=== PATIENT | male | born 1985 | race Two or more races ===

== ENCOUNTER 2017-06-28 02:17 | Emergency (ER) | payer BC ==
[~2017-06-28] VITALS: Ht 167.6 cm; Wt 86.2 kg
[2017-06-28 02:25] VITALS: BP 159/97
[2017-06-28] MEDS ORDERED: ONDANSETRON HCL 4 MG/2 ML VIAL IV ONE ×2 (03:30→05:45)
[2017-06-28] MEDS ORDERED: HYDROmorphone HCL 2 MG/ML VL IV ONE (03:30)
[2017-06-28 04:02] LABS: Mean Corpuscular Hemoglobin 29.6 pg (28.0-32.0); Mean Corpuscular Volume 87.1 fL (80.0-100.0); Mean Platelet Volume 8.3 fL (6.9-10.8); Platelet Count (auto) 356 10^3/uL (140-450); Red Cell Distribution Width 13.2 % (11.8-14.3); White Blood Cell 22.8 10^3/uL (4.4-10.8)
[2017-06-28] MEDS ORDERED: TETANUS-DIPTH-ACEL PERTUSSIS 0.5ML SYRG IM ONE (04:15)
[2017-06-28 04:20] LABS: Albumin 4.6 g/dL (3.4-5.0); BUN/Creatinine Ratio 5.5; Calcium 9.2 mg/dL (8.5-10.1)
[2017-06-28 04:23] LABS: Bilirubin, Total 0.4 mg/dL (0.2-1.0)
[2017-06-28] MEDS ORDERED: PROMETHAZINE HCL 25 MG/ML 1ML IV ONE (06:00)
[2017-06-28 06:14] LABS: Urine Bilirubin Negative (Negative); Urine Blood 1+ /uL (Negative); Urine Ca Oxalate Crystal FEW (None Seen); Urine Color Colorless (Yellow); Urine Glucose 4+ mg/dL (Normal); Urine Ketone 1+ (Negative); Urine Mucus FEW (None Seen); Urine Nitrite Negative (Negative); Urine RBC 2 /hpf (0 - 3); Urine Squamous Epithelial Cell FEW /hpf (<5); Urine Urobilinogen Normal (Negative); Urine pH 5.5 (5.0-8.0)
[2017-06-28 07:22] LABS: Metamyelocytes % 0; Myelocytes % 0; Promyelocytes % 0; Reactive Lymphocytes 0
[2017-06-28 07:23] LABS: Anisocytosis Slight; Ovalocytes FEW; Platelet Estimate Adequate
== END 2017-06-28 06:22 | disposition home or self-care (01) ==
LOC: EDUNIT# 02:17 → EDBD 02:17 → ER 02:26
DX: S02.92XA Unspecified fracture of facial bones, initial encounter for closed fracture (principal); G92 Toxic encephalopathy; F10.120 Alcohol abuse with intoxication, uncomplicated; E11.9 Type 2 diabetes mellitus without complications; I10 Essential (primary) hypertension; Y08.89XA Assault by other specified means, initial encounter; Y93.89 Activity, other specified; Y99.8 Other external cause status; Y92.89 Other specified places as the place of occurrence of the external cause
CPT/HCPCS: 36415; 70450; 70486; 71010; 80053; 80307; 80320; 81001; 85007; 85027; 90471; 90715; 96374; 96375; 99285; J1170; J2405; J2550

== ENCOUNTER 2021-02-11 22:57 | Emergency (ER) | payer MEDICAID ==
[~2021-02-11] VITALS: Ht 167.6 cm; Wt 93.0 kg
[2021-02-12] MEDS ORDERED: SODIUM CHLORIDE 0.9% 1,000 ML IV ONE (00:15)
[2021-02-12 01:52] VITALS: BP 134/62
== END 2021-02-12 02:15 | disposition home or self-care (01) ==
LOC: ER 23:00
DX: E11.65 Type 2 diabetes mellitus with hyperglycemia (principal); I10 Essential (primary) hypertension
CPT/HCPCS: 82962; 96360; 99283; J7030

== ENCOUNTER 2025-03-07 22:52 | Emergency (ER) | payer MEDICAID ==
[~2025-03-07] VITALS: Ht 175.3 cm; Wt 77.3 kg
[2025-03-08 00:02] LABS: Basophils # (auto) 0 10 ^3/uL (0-0.2); Basophils % (auto) 0.2 % (0.0-2.0); Eosinophils # (auto) 0 10 ^3/uL (0-0.8); Eosinophils % (auto) 0.3 % (0.0-7.0); Hemoglobin 14.8 g/dL (13.5-17.5); Lymphocytes # (auto) 1.3 10 ^3/uL (0.4-5.4); Lymphocytes % (auto) 10.8 % (10.0-50.0); Mean Corpuscular Hemoglobin 28.6 pg (28.0-32.0); Mean Corpuscular Hgb Conc. 34.4 g/dL (32.0-36.0); Mean Corpuscular Volume 83.2 fL (80.0-100.0); Monocytes # (auto) 0.3 10 ^3/uL (0-1.3); Monocytes % (auto) 2.8 % (0.0-12.0); Neutrophils # (auto) 10.4 10 ^3/uL (1.6-8.6); Neutrophils % (auto) 85.9 % (37.0-80.0); Nucleated Red Blood Cells % 0.1 %; Platelet Count (auto) 356 10^3/uL (140-450); Red Blood Cells 5.16 10^6/uL (4.5-5.90); Red Cell Distribution Width 12.9 % (11.8-14.3); White Blood Cell 12.1 10^3/uL (4.4-10.8)
[2025-03-08 00:15] LABS: Alanine Aminotransferase 22 U/L (7-40); Alkaline Phosphatase 85 U/L (46-116); Anion Gap 17 (5-15); Aspartate Aminotransferase 16 U/L (<34); BUN/Creatinine Ratio 6.4 (10.0-20.0); Bilirubin, Total 0.3 mg/dL (0.2-1.0); Blood Urea Nitrogen 6 mg/dL (9-23); Calcium 10.4 mg/dL (8.7-10.4); Carbon Dioxide 23 mmol/L (20-31); Chloride 99 mmol/L (98-107); Glucose 333 mg/dL (74-106); Potassium 3.5 mmol/L (3.5-5.1); Sodium 139 mmol/L (136-145); Total Protein 7.7 g/dL (5.7-8.2)
--- NOTE | 2025-03-08 00:46 | ED.PDOC ---
History of Present Illness HPI Comments 39 y/o M, with a history of DM type I, noncompliance, and alcohol abuse, is BIBA for dizziness, with associated nausea and vomiting, s/p fall and head injury. Per EMS report, patient endorses on developing symptoms after slipping and falling and hitting the back of his head w/o LOC in the shower, this evening. He admits to drinking heavy amounts of alcohol all day (drinks daily) and not taking his insulin medication for years. On scene, he was noted to have had a blood glucose in the 300's range. Patient denies having any chest pain, shortness of breath, vision or speech changes, weakness, polydipsia, polyuria, polyphagia, or further associated symptoms. 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 Past Medical History PAST MEDICAL HISTORY: DM (type I, noncompliant ) Surgical History: Denies all surgeries Family History Family History: Reviewed,noncontributory to illness Social History Smoker: Non-Smoker Alcohol: Heavy Drugs: Denies Drug Use Lives In: Home All Other Systems: Reviewed and Negative (Comprehensive systems review obtained and negative except for what is stated in the HPI.) Physical Exam General Appearance: No Apparent Distress, Normal HEENT: Normal ENT Inspection, Pharynx Normal, TMs Normal Neck: Full Range of Motion, Non-Tender, Normal, Normal Inspection Respiratory: Chest Non-Tender, Lungs Clear, No Accessory Muscle Use, No Respiratory Distress, Normal Breath Sounds Cardiovascular: No Edema, No JVD, No Murmur, No Gallop, Normal Peripheral Pulses, Regular Rate/Rhythm Breast Exam: Deferred Gastrointestinal: No Organomegaly, Non Tender, No Pulsatile Mass, Normal Bowel Sounds, Soft Genitalia: Deferred Pelvic: Deferred Rectal: Deferred Extremities: No calf tenderness, Normal capillary refill, Normal inspection, Normal range of motion, Non-tender, No pedal edema Musculoskeletal : Apperance: Normal 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 Was a procedure done?: No Differential Dx Considerations may include: hyperglycemia, DKA, medication noncompliance, alcohol abuse/intoxication, subst ance dependency, closed head injury, among others X-Ray, Labs, Meds, VS Vital Signs Date Time Temp Pulse Resp B/P (MAP) Pulse Ox O2 Delivery O2 Flow Rate FiO2 03/08/25 02:07 94 16 97 Room Air 03/08/25 02:04 98.0 94 16 128/88 (101) 97 98.0 03/07/25 22:56 98.4 112 16 130/84 (99) 100 98.4 Lab Test 03/07/25 23:40 03/07/25 23:32 Range/Units White Blood Count 12.1 H 4.4-10.8 10^3/uL Red Blood Count 5.16 4.5-5.90 10^6/uL Hemoglobin 14.8 13.5-17.5 g/dL Hematocrit 43.0 41.0-53.0 % Mean Corpuscular Volume 83.2 80.0-100.0 fL Mean Corpuscular Hemoglobin 28.6 28.0-32.0 pg Mean Corpuscular Hemoglobin Concent 34.4 32.0-36.0 g/dL Red Cell Distribution Width 12.9 11.8-14.3 % Platelet Count 356 140-450 10^3/uL Mean Platelet Volume 8.0 6.9-10.8 fL Neutrophils (%) (Auto) 85.9 H 37.0-80.0 % Lymphocytes (%) (Auto) 10.8 10.0-50.0 % Monocytes (%) (Auto) 2.8 0.0-12.0 % Eosinophils (%) (Auto) 0.3 0.0-7.0 % Basophils (%) (Auto) 0.2 0.0-2.0 % Neutrophils # (Auto) 10.4 H 1.6-8.6 10 ^3/uL Lymphocytes # (Auto) 1.3 0.4-5.4 10 ^3/uL Monocytes # (Auto) 0.3 0-1.3 10 ^3/uL Eosinophils # (Auto) 0 0-0.8 10 ^3/uL Basophils # (Auto) 0 0-0.2 10 ^3/uL Nucleated Red Blood Cells 0.1 % Sodium Level 139 136-145 mmol/L Potassium Level 3.5 3.5-5.1 mmol/L Chloride Level 99 98-107 mmol/L Carbon Dioxide Level 23 20-31 mmol/L Anion Gap 17 H 5-15 Blood Urea Nitrogen 6 L 9-23 mg/dL Creatinine 0.94 0.700-1.30 mg/dL Glomerular Filtration Rate Calc 106 >90 mL/min BUN/Creatinine Ratio 6.4 L 10.0-20.0 Serum Glucose 333 H 74-106 mg/dL Calcium Level 10.4 8.7-10.4 mg/dL Total Bilirubin 0.3 0.2-1.0 mg/dL Aspartate Amino Transferase (AST) 16 <34 U/L Alanine Aminotransferase (ALT) 22 7-40 U/L Alkaline Phosphatase 85 46-116 U/L Total Protein 7.7 5.7-8.2 g/dL Albumin 5.0 H 3.2-4.8 g/dL Plasma/Serum Blood Alcohol 181.6 H <10 mg/dL Blood Gas Specimen Type Venous Blood Gas Sample Site Vbg - n/a Blood Gas Patient Temperature 37.0 Arterial Blood Date Drawn [id number] Anton Test N/a Venous Blood pH 7.379 7.320-7.430 Venous Blood pCO2 at Patient Temp 34.6 L 38.0-54.0 mmHg Venous Blood pO2 at Patient Temp 62.7 H 23.0-48.0 mmHg Venous Blood HCO3 20.0 L 22.0-29.0 mmol/L Venous Blood Base Excess -4.3 L -2.0-3.0 mmol/L Blood Gas Modality Room air FiO2 % 21.0 Current Medications Medications (Trade) Dose Ordered Sig/Preet Route Start Time Stop Time Status Last Admin Ondansetron HCl (Zofran) 4 mg ONCE ONCE IV 03/07/25 23:30 03/07/25 23:31 DC 03/08/25 00:57 Sodium Chloride 1,000 ml @ 1,000 mls/hr Q1H ONCE IVB 03/07/25 23:30 03/08/25 00:29 DC 03/08/25 00:57 Time of 1ST Reevaluation: 23:50 Reevaluation 1ST: Unchanged Patient Education/Counseling: Diagnosis, Treatment, Need For Follow Up Family Education/Counseling: No Family Present SEPSIS Sepsis Screen Date sepsis recognized/suspect: Mar 07, 2025 Time Sepsis recognized/suspect: 2255 Recent Procedure: No On Antibiotic Therapy: No Respiratory Rate >20: No Heart Rate >90: No Temp<36 C (96.8 F) or >38.3 C: No SBP <90 or MAP <65 mmHG: No New Acute Mental Status Change: No Is the patient on CPAP, BIPAP,: No Orders/Vitals/Labs Physician Orders Venous Blood Gas (03/07/25 23:20) Vital Signs Date Time Temp Pulse Resp B/P (MAP) Pulse Ox O2 Delivery O2 Flow Rate FiO2 03/08/25 02:07 94 16 97 Room Air 03/08/25 02:04 98.0 94 16 128/88 (101) 97 98.0 03/07/25 22:56 98.4 112 16 130/84 (99) 100 98.4 Laboratory Tests Test 03/07/25 23:40 White Blood Count 12.1 10^3/uL (4.4-10.8) H Medications Medications Dose Ordered Sig/Preet Route Start Time Stop Time Status Last Admin Dose Admin Ondansetron HCl 4 mg ONCE ONCE IV 03/07/25 23:30 03/07/25 23:31 DC 03/08/25 00:57 Sodium Chloride 1,000 ml @ 1,000 mls/hr Q1H ONCE IVB 03/07/25 23:30 03/08/25 00:29 DC 03/08/25 00:57 Departure 1 Departure Time of Disposition: 02:00 Impression: Primary Impression: Alcohol intoxication Additional Impressions: Hyperglycemia Type 2 diabetes mellitus with hyperglycemia Disposition: 01 HOME / SELF CARE / HOMELESS Condition: Stable e-Prescriptions Metformin Hydrochloride (Metformin Hcl) 1,000 Mg Tab 1 TAB PO BID, #180 TAB 5 Refills Prov: TOM STEWART MD 03/08/25 Discharged With: Self Critical Care Note Critical Care Time?: No Stability Stability form required: No Heart Score Heart Score: Heart Score Response (Comments) Value History N/A 0 EKG N/A 0 Age N/A 0 Risk Factors N/A 0 Troponin N/A 0 Total 0 I personally scribed for TOM STEWART MD ([email or web address]) on 03/08/25 at 00:46. Electronically submitted by Wlimer Rossi ([email or web address]). TOM STEWART MD Mar 08, 2025 00:46
[2025-03-08] MEDS: ONDANSETRON HCL 4 MG/2 ML VIAL IV ONE (00:57)
[2025-03-08] MEDS: SODIUM CHLORIDE 0.9% 1,000 ML IVB ONE (00:57)
[2025-03-08 01:32] LABS: Blood Alcohol 181.6 mg/dL (<10)
[2025-03-08] MEDS ORDERED: METF-372 PO (01:53)
[2025-03-08 02:04] VITALS: BP 128/88; TEMP 98
[2025-03-08 02:07] VITALS: PULSE 94; RESP 16; O2SAT 97
== END 2025-03-08 02:11 | disposition home or self-care (01) ==
LOC: EDBD 22:52 → ER 22:52
DX: E11.65 Type 2 diabetes mellitus with hyperglycemia (principal); F10.129 Alcohol abuse with intoxication, unspecified; R11.2 Nausea with vomiting, unspecified; Z79.4 Long term (current) use of insulin; Z79.84 Long term (current) use of oral hypoglycemic drugs; Y90.9 Presence of alcohol in blood, level not specified
CPT/HCPCS: 36415; 36600; 80053; 80320; 82805; 82947; 85025; 96361; 96374; 99283; J2405; J7030